=== PATIENT | male | born 1950 | race Caucasian/White ===

== ENCOUNTER 2017-11-03 16:14 | Emergency (ER) | payer OTHER ==
[2017-11-03] MEDS ORDERED: ASPIRIN 81 MG CHEWABLE TABLETS PO ONE (16:44)
--- NOTE | 2017-11-03 16:44 | PDOC ---
Rapid Medical Evaluation Time Seen by Provider: 11/03/17 16:40 Medical Evaluation: 11/03/17 16:41 I have performed a brief in-person evaluation of this patient. The patient presents with a chief complaint of: R pleuritic chest pain since last night, denies fever, chills, vomiting, diarrhea, hx of "URI, i see a pulmonary doctor" Pertinent physical exam findings: pain with inspiration, lungs ctab I have ordered the following: labs, ekg, cxr The patient will proceed to the ED for further evaluation. Discharge Disposition - Diagnosis Chest pain, pleuritic - Referrals - Patient Instructions - Post Discharge Activity
[2017-11-03 16:48] VITALS: BMI 38.0
[2017-11-03] MEDS ORDERED: ASPIRIN 81 MG CHEWABLE TABLETS ONE (16:56)
[2017-11-03 17:23] LABS: BASO % 0.5 % (0-2.0); EOS % 3.1 % (0-4.5); HEMATOCRIT 45.8 % (35.4-49); HEMOGLOBIN 15.5 GM/dL (11.7-16.9); MCH 31.4 pg (25.7-33.7); MCHC 33.8 g/dl (32.0-35.9); MEAN CELL VOLUME 93.1 fl (80-96); MEAN PLT VOLUME 9.4 fl (7.5-11.1); MONO % 9.5 % (3.8-10.2); NEUT % 67.9 % (42.8-82.8); PLATELET COUNT 250 K/MM3 (134-434); RBC 4.92 M/mm3 (4.00-5.60); RDW 13.4 % (11.9-15.9); WHITE BLOOD COUNT 9.3 K/mm3 (4.0-10.0)
--- NOTE | 2017-11-03 17:38 | PDOC ---
Attending Attestation - Resident Resident Name: Heber Snider - ED Attending Attestation I have performed the following: I have examined & evaluated the patient, The case was reviewed & discussed with the resident, I agree w/resident's findings & plan, Exceptions are as noted - HPI HPI: 11/06/17 22:41 Mr Reich is a 67 yo M who presents to the ER with a complaint of right sided chest pain Pt has a history of HTN, SVT, Tobacco abuse, COPD Pt worsens with movement or palpation No worsening of his cough or shortness of breath No fevers or chills No ill contacts No recent travel/immobilization/surgery - Physicial Exam PE: 11/03/17 18:59 GENERAL: The patient is in no acute distress, pt appears to be in pain, therefore is standing in the caban near his bed instead of sitting on the bed HEAD: Normal EYES: PERRLA, EOMI, sclera anicteric, conjunctiva clear. ENT: Ears normal, nares patent, oropharynx clear without exudates. Moist mucous membranes. NECK: Normal range of motion, supple LUNGS: (+) wheezes on examination HEART:Regular rate and rhythm, normal S1 and S2 without murmur, rub or gallop. ABDOMEN: Soft, nontender, normoactive bowel sounds. No guarding, no rebound. No masses palpable. EXTREMITIES: Normal range of motion, no edema. No clubbing or cyanosis. No erythema, or tenderness. NEUROLOGICAL: Cranial nerves II through XII grossly intact. Normal speech. Right lower extremity weakness MUSCULOSKELETAL: (+) right chest wall tenderness to palpation SKIN: Warm, Dry, normal turgor, no rashes or lesions noted. 11/03/17 19:00 - Medical Decision Making 11/03/17 19:00 67 yo M presenting to the ER due to right sided chest pain No shortness of breath and neck pain Pt actively wheezing on examination Will do Labs CT imaging Nebs D dimer sent Re assess Laboratory Tests 11/03/17 11/03/17 11/03/17 17:00 17:06 17:06 WBC 9.3 Hgb 15.5 Hct 45.8 Plt Count 250 Neutrophils % 67.9 Lymphocytes % 19.0 INR 1.10 Sodium 136 Potassium 4.1 Chloride 101 Carbon Dioxide 27 BUN 13 Creatinine 1.0 Random Glucose 86 Creatine Kinase 267 Creatine Kinase Index 1.4 CK-MB (CK-2) 3.753 H Troponin I < 0.02 D dimer elevated Will do CTA Pt signed out to the on coming physician CTA pending Clinical Impression: chest pain, initial presentation
[2017-11-03 17:47] LABS: INR 1.1 (0.82-1.09); PROTHROMBIN TIME (PATIENT) 12.4 SEC (9.98-11.88)
--- NOTE | 2017-11-03 18:00 | PDOC ---
History of Present Illness - General Chief Complaint: Pain Stated Complaint: PAIN, ACUTE Time Seen by Provider: 11/03/17 16:40 History Source: Patient Exam Limitations: No Limitations - History of Present Illness Initial Comments: 11/03/17 17:56 Patient is a 67M with history of HTN, SVT tobacco abuse and "the beginning of COPD" here today complaining of right sided chest pain that started this morning. The pain is worsened with movement, cough, inspiration and palpation. 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 He denies fever, chills, nausea, vomiting. Denies sick contacts. He states that he' s never had a blood clot before, denies leg swelling and denies recent travel/ immobilization. He endorses associated shortness of breath. He states that he's had SVT in the past and used to take verapimil, but does not now. PCP: Kang Carrillom: [place] Past History - Past Medical History Allergies/Adverse Reactions: Allergies Allergy/AdvReac Type Severity Reaction Status Date / Time metronidazole [From Flagyl] Allergy Mild Rash Verified 11/03/17 16:41 Home Medications: Ambulatory Orders Candesartan Cilexetil [Atacand (Nf) -] 8 mg PO DAILY 11/03/17 COPD: No - Surgical History Appendectomy: Yes - Suicide/Smoking/Psychosocial Hx Smoking History: Current every day smoker Have you smoked in the past 12 months: Yes Number of Cigarettes Smoked Daily: 8 Information on smoking cessation initiated: No Hx Alcohol Use: No Drug/Substance Use Hx: No Substance Use Type: None Review of Systems - Review of Systems Comments:: 11/03/17 18:00 GENERAL/CONSTITUTIONAL: No fever or chills. No weakness. HEAD, EYES, EARS, NOSE AND THROAT: No change in vision. No sore throat. CARDIOVASCULAR: Positive for chest pain and shortness of breath RESPIRATORY: Positive for cough. Negative for hemoptysis. GASTROINTESTINAL: No nausea, vomiting, diarrhea or constipation. GENITOURINARY: No dysuria, frequency, or change in urination. MUSCULOSKELETAL: No joint or muscle swelling or pain. No neck or back pain. SKIN: No rash NEUROLOGIC: No headache, vertigo, loss of consciousness, or change in strength/ sensation. ENDOCRINE: No increased thirst. No abnormal weight change HEMATOLOGIC/LYMPHATIC: No anemia, easy bleeding, or history of blood clots. ALLERGIC/IMMUNOLOGIC: No hives or skin allergy. *Physical Exam - Vital Signs Last Vital Signs Temp Pulse Resp BP Pulse Ox 97.8 F 71 20 158/78 97 11/03/17 16:42 11/03/17 16:42 11/03/17 16:42 11/03/17 16:42 11/03/17 16:42 - Physical Exam Comments: 11/03/17 18:04 GENERAL: Awake, alert, and fully oriented, in no acute distress HEAD: No signs of trauma, normocephalic, atraumatic EYES: PERRLA, EOMI, sclera anicteric, conjunctiva clear ENT: Auricles normal inspection, hearing grossly normal, nares patent, oropharynx clear without exudates. Moist mucosa NECK: Normal ROM, supple, +JVD LUNGS: No distress, speaks full sentences, scattered wheezes bilaterally HEART: Regular rate and rhythm, normal S1 and S2, no murmurs, rubs or gallops, peripheral pulses normal and equal bilaterally. CHEST: Tender to palpation along ribs in mid right chest ABDOMEN: Protuberant but soft, nontender. No guarding, no rebound. No masses EXTREMITIES: Normal inspection, Normal range of motion, 2+ edema bilaterally along tibia. No clubbing or cyanosis. NEUROLOGICAL: Cranial nerves II through XII grossly intact. Normal speech, normal gait, no focal sensorimotor deficits SKIN: Warm, Dry, normal turgor, no rashes or lesions noted. ED Treatment Course - LABORATORY CBC & Chemistry Diagram: 11/03/17 17:06 11/03/17 17:00 - ADDITIONAL ORDERS Additional order review: 11/03/17 17:06 RBC 4.92 MCV 93.1 MCHC 33.8 RDW 13.4 MPV 9.4 Neutrophils % 67.9 Lymphocytes % 19.0 Monocytes % 9.5 Eosinophils % 3.1 Basophils % 0.5 - Medications Given in the ED: ED Medications Discontinued Medications Generic Name Dose Route Start Last Admin Trade Name Freq PRN Reason Stop Dose Admin Aspirin 162 mg 11/03/17 16:44 11/03/17 16:59 Asa - PO 11/03/17 16:45 162 mg ONCE ONE Administration Medical Decision Making - Medical Decision Making 11/03/17 18:06 Patient is a 67M with history of HTN, SVT, possible COPD here today complaining of right sided chest pain. Patient appears to have heart failure. Patient is very tender along rib, concerning for rib injury, possibly secondary to mets from an undiagnosed CA. Patient last saw doctor in January 2017. Differential diagnosis also includes, but is not limited to: msk pain due to coughing, PE, ACS. Patient is low-risk wells, but cannot PERC out. Will workup with CBC, CMP, Trop, PT/INR, CXR, EKG, D-dimer. If D-dimer positive, will do CTA. If D-dimer is positive, will CTA. Will likely CT Chest if D-dimer is negative, will decide after basic workup completed. 11/03/17 18:17 D-dimer mildly elevated. Upon further history taken patient has had multiple suspicious for what sounds to be CXR and Chest CTs in the past. Will do CTA Chest to evaluate for possible PE, lung CA, pneuonia and other lung etiologies. 11/03/17 18:48 EKG shows normal sinus rhythm with sinus arrhythmia. Normal rate, normal axis. No st elevations/depressions. Normal SD, QTc, QRS intervals. No signifivant t- wave abnormalities. 11/03/17 19:06 Laboratory Tests 11/03/17 11/03/17 11/03/17 17:00 17:06 17:06 WBC 9.3 Hgb 15.5 Hct 45.8 Plt Count 250 D-Dimer 560 H Creatinine 1.0 Troponin I < 0.02 CBC normal. CMP shows normal kidney function. Trop negative. BNP pending. Signed out to Dr Bernal. CTA Chest and BNP pending. *DC/Admit/Observation/Transfer Diagnosis at time of Disposition: Chest pain, pleuritic - Discharge Dispostion Condition at time of disposition: Stable - Referrals Referrals: Dejan Kapadia MD [Primary Care Provider] - - Patient Instructions - Post Discharge Activity
[2017-11-03 18:44] LABS: ALBUMIN 4.4 g/dl (3.4-5.0); ANION GAP 8 (8-16); BLOOD UREA NITROGEN 13 mg/dL (7-18); CALCIUM 8.8 mg/dL (8.5-10.1); CHLORIDE 101 mmol/L (98-107); CO2 27 mmol/L (21-32); GLUCOSE,RANDOM 86 mg/dL (74-106); POTASSIUM 4.1 mmol/L (3.5-5.1); SODIUM 136 mmol/L (136-145)
[2017-11-03 18:50] LABS: ALK PHOS 88 U/L (45-117); BILIRUBIN,TOTAL 0.6 mg/dL (0.2-1.0); SGOT/AST 27 U/L (15-37); SGPT/ALT 55 U/L (12-78); TOT PROT 7.7 g/dl (6.4-8.2)
[2017-11-03] MEDS ORDERED: traMADol HCL 50 MG TABLET PO ONE (22:10)
[2017-11-03] MEDS ORDERED: AZITHROMYCIN 250 MG TABLET PO STA (22:10)
--- NOTE | 2017-11-03 22:14 | PDOC ---
*Physical Exam - Vital Signs Last Vital Signs Temp Pulse Resp BP Pulse Ox 97.8 F 71 20 158/78 97 11/03/17 16:42 11/03/17 16:42 11/03/17 16:42 11/03/17 16:42 11/03/17 16:42 ED Treatment Course - LABORATORY CBC & Chemistry Diagram: 11/03/17 17:06 11/03/17 17:00 - ADDITIONAL ORDERS Additional order review: Laboratory Results 11/03/17 11/03/17 11/03/17 17:34 17:06 17:06 PT with INR 12.40 H INR 1.10 D-Dimer 560 H Sodium Potassium Chloride Carbon Dioxide Anion Gap BUN Creatinine Creat Clearance w eGFR Random Glucose Calcium Magnesium Total Bilirubin AST ALT Alkaline Phosphatase Creatine Kinase Troponin I B-Natriuretic Peptide 38.35 Total Protein Albumin 11/03/17 17:00 PT with INR INR D-Dimer Sodium 136 Potassium 4.1 Chloride 101 Carbon Dioxide 27 Anion Gap 8 BUN 13 Creatinine 1.0 Creat Clearance w eGFR > 60 Random Glucose 86 Calcium 8.8 Magnesium 2.0 Total Bilirubin 0.6 AST 27 ALT 55 Alkaline Phosphatase 88 Creatine Kinase 267 Troponin I < 0.02 B-Natriuretic Peptide Total Protein 7.7 Albumin 4.4 11/03/17 17:06 RBC 4.92 MCV 93.1 MCHC 33.8 RDW 13.4 MPV 9.4 Neutrophils % 67.9 Lymphocytes % 19.0 Monocytes % 9.5 Eosinophils % 3.1 Basophils % 0.5 - Medications Given in the ED: ED Medications Discontinued Medications Generic Name Dose Route Start Last Admin Trade Name Juanq PRN Reason Stop Dose Admin Aspirin 162 mg 11/03/17 16:44 11/03/17 16:59 Asa - PO 11/03/17 16:45 162 mg ONCE ONE Administration *DC/Admit/Observation/Transfer Diagnosis at time of Disposition: Chest pain, pleuritic - Discharge Dispostion Disposition: HOME Condition at time of disposition: Stable Admit: No - Prescriptions Prescriptions: Azithromycin [Zithromax -] 250 mg PO UTDICT #6 tab Tramadol HCl [Ultram] 50 mg PO QID #20 tablet MDD 200 - Referrals Referrals: Dejan Kapadia MD [Primary Care Provider] - - Patient Instructions Printed Discharge Instructions: DI for Atypical Chest Pain Additional Instructions: Please follow up with Dr. Kapadia as soon as possible for re-evaluation. TAke medication as directed. Return if any problems - Post Discharge Activity
[2017-11-03] MEDS ORDERED: AZITHROMYCIN 250 MG TABLET ONE (22:15)
[2017-11-03] MEDS ORDERED: traMADol HCL 50 MG TABLET ONE (22:15)
[2017-11-03 22:23] VITALS: BP 145/73; PULSE 78; TEMP 98
--- NOTE | 2017-11-04 11:50 | EKG ---
Test Reason : Blood Pressure : / mmHG Vent. Rate : 069 BPM Atrial Rate : 069 BPM P-R Int : 154 ms QRS Dur : 090 ms QT Int : 418 ms P-R-T Axes : 050 015 040 degrees QTc Int : 447 ms POOR DATA QUALITY, INTERPRETATION MAY BE ADVERSELY AFFECTED NORMAL SINUS RHYTHM WITH SINUS ARRHYTHMIA NORMAL ECG WHEN COMPARED WITH ECG OF 03-JUN-2006 00:17, NO SIGNIFICANT CHANGE WAS FOUND Confirmed by DIVYA HANSEN, JULISSA ([id number]) on 11/04/2017 11:50:20 AM Referred By: Confirmed By:JULISSA STOKES MD
== END 2017-11-03 22:23 | disposition home or self-care (01) ==
LOC: JER 16:14
DX: R07.89 Other chest pain (principal); I10 Essential (primary) hypertension; I47.1 Supraventricular tachycardia; F17.210 Nicotine dependence, cigarettes, uncomplicated
CPT/HCPCS: 36415; 71046-TC-FY; 71275-TC; 80053; 82550; 82553; 83735; 83880; 84484; 85025; 85379; 85610; 93005; 93010; 99284-25

== ENCOUNTER 2018-12-03 13:11 | Inpatient (IN) | payer OTHER ==
--- NOTE | 2018-12-03 14:28 | PDOC ---
History of Present Illness - General Chief Complaint: Pain Stated Complaint: ABD PAIN/BLEEDING Time Seen by Provider: 12/03/18 13:52 History Source: Patient - History of Present Illness Initial Comments: 68 yo M h/o HTN, SVT, COPD p/w bleeding per rectum. Patient endorses, 30 mins after lunch, he had R lower quadrant pain, 6/10, comes and goes, non-radiating, sharp. Then he had 5 episodes of bright red blood with dark stool since lunch. He had 2 shots of vodka last night and bread and eggs for lunch. He has had chronic epigastric discomfort for which he takes colace suppository and PPI for GERD. EGD and colonoscopy on 11/18/18 found 2 gastric polyps, gastritis, diverticulosis and 3 angioplastic lesions which were cauterized. His PMD (Dr. Kapadia) instructed him to get an abd CT with oral contrast next Wednesday. He follows Dr. Daniel for GI. Denies fever, chills, dizziness, headache, blurry vision, urinary sx, n/v. 12/03/18 14:40 Will do GI bleed workup: CBC, T&S, coag, CMP, EKG 12/03/18 16:13 Patient will be admitted under Dr. Barker's service Past History - Past Medical History Allergies/Adverse Reactions: Allergies Allergy/AdvReac Type Severity Reaction Status Date / Time metronidazole [From Flagyl] Allergy Mild Rash Verified 12/03/18 13:25 Home Medications: Ambulatory Orders Candesartan Cilexetil [Atacand (Nf) -] 8 mg PO DAILY 11/03/17 Pantoprazole Sodium 40 mg PO DAILY 12/03/18 COPD: No - Surgical History Appendectomy: Yes - Suicide/Smoking/Psychosocial Hx Smoking History: Current some day smoker Have you smoked in the past 12 months: Yes Number of Cigarettes Smoked Daily: 8 Information on smoking cessation initiated: No Hx Alcohol Use: No Drug/Substance Use Hx: No Substance Use Type: None Review of Systems - Review of Systems Able to Perform ROS?: Yes Constitutional: Yes: Weight Stable. No: Chills, Fever, Malaise, Weakness Respiratory: No: Cough, Shortness of Breath, Wheezing Cardiac (ROS): No: Chest Pain, Edema, Palpitations, Syncope, Chest Tightness ABD/GI: Yes: Constipated, Rectal Bleeding, Abdominal cramping. No: Abdominal Distended, Nausea, Vomiting : No: Burning, Dysuria, Flank Pain, Incontinence, Pain Neurological: No: Headache, Dizziness *Physical Exam - Vital Signs Last Vital Signs Temp Pulse Resp BP Pulse Ox 98.2 F 104 H 16 169/90 98 12/03/18 13:15 12/03/18 13:15 12/03/18 13:15 12/03/18 13:15 12/03/18 13:15 - Physical Exam General Appearance: No: Apparent Distress Respiratory/Chest: positive: Normal Breath Sounds Cardiovascular: positive: Regular Rhythm, Regular Rate, S1, S2. negative: Edema , JVD, Murmur Gastrointestinal/Abdominal: positive: Normal Bowel Sounds, Tender (suprapubic), Soft. 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 NML intact, Fully Oriented, Alert Moderate Sedation - Procedure Monitoring Vital Signs: Procedure Monitoring Vital Signs Temperature 98.2 F 12/03/18 13:15 Pulse Rate 104 H 12/03/18 13:15 Respiratory Rate 16 12/03/18 13:15 Blood Pressure 169/90 12/03/18 13:15 O2 Sat by Pulse Oximetry (%) 98 12/03/18 13:15 ED Treatment Course - LABORATORY CBC & Chemistry Diagram: 12/03/18 14:44 12/03/18 14:44 *DC/Admit/Observation/Transfer Diagnosis at time of Disposition: Lower GI bleed - Discharge Dispostion Decision to Admit order: Yes - Referrals Referrals: Dejan Kapadia MD [Primary Care Provider] - - Patient Instructions - Post Discharge Activity
[2018-12-03] MEDS ORDERED: SODIUM CHLORIDE 500 ML IV STA (14:35)
--- NOTE | 2018-12-03 15:33 | PDOC ---
Attending Attestation - Resident Resident Name: Manuel Mora - ED Attending Attestation I have performed the following: I have examined & evaluated the patient, The case was reviewed & discussed with the resident, I agree w/resident's findings & plan - HPI HPI: 12/03/18 15:26 68-year-old male hypertension, COPD presents with bright red blood per rectum since 11:30 AM. Patient reports right lower quadrant cramping followed by dark/ red grossly bloody bowel movements including blood clots, had his sixth episode in the last 4 hours while in the emergency department. The cramping is temporary and relieved with a bowel movement, not persistent. Patient had endoscopy and colonoscopy on 11/18/18, noted to have gastritis on endoscopy and diverticulosis as well as AVMs in the cecum on colonoscopy. No history of GI bleed, not on blood thinners. - Physicial Exam PE: 12/03/18 15:28 Vitals as noted, heart rate 90 Well-appearing, conversant, no acute distress Heart is regular, not tachycardic while lying in stretcher Abdomen soft/nondistended, mild right lower quadrant discomfort without guarding or rebound. Appendectomy scars. - Medical Decision Making 12/03/18 15:32 68y/o M s/p colonoscopy with AVM cautery, also with diverticulosis p/w LGIB over 2h, benign abdominal exam and HD stable at this time. labs, trend CBC ekg, cxr not on blood thinners, transfuse as needed admit, GI consult 12/03/18 16:30 first hgb 14.7, chem wnl proceed with admission Heart Score/ECG Review #1 ECG reviewed & interpreted by me at: 14:33 General ECG Interpretation: Sinus Rhythm, Normal Rate (80), Normal Intervals ( qtc 445), No acute ischemic changes
[2018-12-03 15:44] LABS: BASO % 0.5 % (0-2.0); EOS % 1.7 % (0-4.5); HEMATOCRIT 42.3 % (35.4-49); HEMOGLOBIN 14.7 GM/dL (11.7-16.9); INR 1.09 (0.83-1.09); LYMPH % 15.1 % (8-40); MCH 32.7 pg (25.7-33.7); MCHC 34.7 g/dl (32.0-35.9); MEAN CELL VOLUME 94.3 fl (80-96); MONO % 9.9 % (3.8-10.2); NEUT % 72.8 % (42.8-82.8); PLATELET COUNT 216 K/MM3 (134-434); PROTHROMBIN TIME (PATIENT) 12.9 SEC (9.7-13.0); RBC 4.49 M/mm3 (4.00-5.60); RDW 13.5 % (11.9-15.9); WHITE BLOOD COUNT 7.2 K/mm3 (4.0-10.0)
[2018-12-03 15:47] LABS: ACTIVATED PTT 35.5 SECONDS (25.2-36.5)
--- NOTE | 2018-12-03 16:15 | HP ---
Admitting History and Physical - Admission History of Present Illness: 68 yo M h/o HTN, SVT, COPD p/w bleeding per rectum. Patient endorses, 30 mins after lunch, he had R lower quadrant pain, 6/10, comes and goes, non-radiating, sharp. Then he had 5 episodes of bright red blood with dark stool since lunch. He had 2 shots of vodka last night and bread and eggs for lunch. He has had chronic epigastric discomfort for which he takes colace suppository and PPI for GERD. EGD and colonoscopy on 11/18/18 found 2 gastric polyps, gastritis, diverticulosis and 3 angioplastic lesions which were cauterized. His PMD (Dr. Kapadia) instructed him to get an abd CT with oral contrast next Wednesday. He follows Dr. Daniel for GI. Denies fever, chills, dizziness, headache, blurry vision, urinary sx, n/v. Patient c/o intermittent chiquita-umbilical pain - Past Medical History Cardiovascular: Yes: HTN. No: CAD, CHF Pulmonary: Yes: COPD Gastrointestinal: Yes: Diverticulosis, GERD, Other (avm) Renal/: No: Renal Failure - Smoking History Smoking history: Current some day smoker Have you smoked in the past 12 months: Yes Aproximately how many cigarettes per day: 8 - Alcohol/Substance Use Hx Alcohol Use: No Home Medications - Allergies Allergies/Adverse Reactions: Allergies Allergy/AdvReac Type Severity Reaction Status Date / Time metronidazole [From Flagyl] Allergy Mild Rash Verified 12/03/18 13:25 - Home Medications Home Medications: Ambulatory Orders Candesartan Cilexetil [Atacand (Nf) -] 8 mg PO DAILY 11/03/17 Pantoprazole Sodium 40 mg PO DAILY 12/03/18 Review of Systems - Review of Systems Cardiovascular: denies: Chest Pain, Palpitations Respiratory: denies: Orthopnea, SOB Gastrointestinal: reports: Abdominal Pain, Constipation, Rectal Bleeding. denies: Dysphagia, Melena Genitourinary: reports: No Symptoms Neurological: reports: No Symptoms Physical Examination Vital Signs: Vital Signs Temperature 98.2 F 12/03/18 13:15 Pulse Rate 104 H 12/03/18 13:15 Respiratory Rate 16 12/03/18 13:15 Blood Pressure 169/90 12/03/18 13:15 O2 Sat by Pulse Oximetry (%) 98 12/03/18 13:15 Cardiovascular: Yes: Regular Rate and Rhythm Respiratory: Yes: Regular, CTA Bilaterally Gastrointestinal: Yes: Normal Bowel Sounds, Soft, Tenderness (mild) Edema: No Labs: CBC, BMP 12/03/18 14:44 Problem List - Problems (1) GI bleed Assessment/Plan: --maybe diverticular vs avm bleed follow hgb ppi gi consult Code(s): K92.2 - GASTROINTESTINAL HEMORRHAGE, UNSPECIFIED (2) Diverticula of colon Assessment/Plan: as above Code(s): K57.30 - DVRTCLOS OF LG INT W/O PERFORATION OR ABSCESS W/O BLEEDING (3) AVM (arteriovenous malformation) of colon Assessment/Plan: as above cta Code(s): K55.20 - ANGIODYSPLASIA OF COLON WITHOUT HEMORRHAGE
[2018-12-03 16:22] LABS: ALBUMIN 3.8 g/dl (3.4-5.0); ANION GAP 6 MMOL/L (8-16); BILIRUBIN,TOTAL 0.4 mg/dL (0.2-1); BLOOD UREA NITROGEN 16 mg/dL (7-18); CHLORIDE 104 mmol/L (98-107); CO2 29 mmol/L (21-32); CREATININE 0.9 mg/dL (0.55-1.3); GLUCOSE,RANDOM 101 mg/dL (74-106); MAGNESIUM 2.3 mg/dL (1.8-2.4); PHOSPHOROUS 2.9 mg/dL (2.5-4.9); POTASSIUM 4.5 mmol/L (3.5-5.1); SGOT/AST 31 U/L (15-37); SGPT/ALT 48 U/L (13-61); SODIUM 138 mmol/L (136-145)
[2018-12-03 16:23] LABS: ALK PHOS 84 U/L (45-117)
[2018-12-03] MEDS: D5-1/2NS+20 MEQ KCL - 20 MEQ/1,000 ML INFUS.BAG IV SCH (16:45)
[2018-12-03 19:42] LABS: HEMATOCRIT 40.5 % (35.4-49); HEMOGLOBIN 14.2 GM/dL (11.7-16.9); MCH 32.9 pg (25.7-33.7); MEAN PLT VOLUME 9.7 fl (7.5-11.1); PLATELET COUNT 244 K/MM3 (134-434); RBC 4.31 M/mm3 (4.00-5.60); RDW 13.5 % (11.9-15.9); WHITE BLOOD COUNT 10.4 K/mm3 (4.0-10.0)
[2018-12-03] MEDS: ALBUTEROL SO4 2.5/IPRATROPIUM 0.5 INH SOL 3 ML VIAL.NEB. NEB SCH (20:53)
[2018-12-04 05:59] VITALS: BMI 36.3
[2018-12-04] MEDS: D5-1/2NS+20 MEQ KCL - 20 MEQ/1,000 ML INFUS.BAG IV SCH ×3 (06:35→18:41)
[2018-12-04] MEDS: ALBUTEROL SO4 2.5/IPRATROPIUM 0.5 INH SOL 3 ML VIAL.NEB. NEB SCH ×4 (07:59→20:47)
[2018-12-04 08:35] LABS: BASO % 0.6 % (0-2.0); EOS % 2.9 % (0-4.5); HEMATOCRIT 32.1 % (35.4-49); HEMOGLOBIN 11.4 GM/dL (11.7-16.9); LYMPH % 23.3 % (8-40); MCH 32.9 pg (25.7-33.7); MCHC 35.5 g/dl (32.0-35.9); MEAN CELL VOLUME 92.7 fl (80-96); MEAN PLT VOLUME 9.7 fl (7.5-11.1); MONO % 8.8 % (3.8-10.2); NEUT % 64.4 % (42.8-82.8); PLATELET COUNT 188 K/MM3 (134-434); RBC 3.46 M/mm3 (4.00-5.60); RDW 13.3 % (11.9-15.9); WHITE BLOOD COUNT 6.3 K/mm3 (4.0-10.0)
[2018-12-04 09:03] LABS: ALBUMIN 3.2 g/dl (3.4-5.0); ALK PHOS 61 U/L (45-117); ANION GAP 6 MMOL/L (8-16); BILIRUBIN,TOTAL 0.5 mg/dL (0.2-1); BLOOD UREA NITROGEN 16 mg/dL (7-18); CHLORIDE 108 mmol/L (98-107); CO2 26 mmol/L (21-32); CREATININE 0.9 mg/dL (0.55-1.3); GLUCOSE,RANDOM 105 mg/dL (74-106); POTASSIUM 4.1 mmol/L (3.5-5.1); SGOT/AST 20 U/L (15-37); SGPT/ALT 34 U/L (13-61); SODIUM 140 mmol/L (136-145); TOT PROT 5.8 g/dl (6.4-8.2)
--- NOTE | 2018-12-04 09:28 | PN ---
Progress Note, Physician Chief Complaint: GI bleed History of Present Illness: NAD labs reviewed, some drop in H/H No BM today Denies N/V/abd pain, denies fever last BM yesterday-bloody diarrhea Recent Colonoscopy + EGD with Dr Saul Daniel on 11/18/18 GI consult pending - Current Medication List Current Medications: Active Medications Albuterol/Ipratropium (Duoneb -) 1 amp NEB RQID [facility] Last Admin: 12/04/18 07:59 Dose: Not Given Potassium Chloride/Dextrose/Sod Cl (D5-1/2ns+20 Meq Kcl -) 20 meq in 1,000 mls @ 83 mls/hr IV ASDIR [facility] Last Admin: 12/04/18 06:35 Dose: 83 mls/hr - Objective Vital Signs: Vital Signs Temperature 98.1 F 12/04/18 05:42 Pulse Rate 73 12/04/18 05:42 Respiratory Rate 18 12/04/18 05:42 Blood Pressure 115/60 12/04/18 05:42 O2 Sat by Pulse Oximetry (%) 97 12/03/18 22:00 Constitutional: Yes: Well Nourished, No Distress, Calm, Obese Cardiovascular: Yes: Regular Rate and Rhythm Respiratory: Yes: Regular Gastrointestinal: Yes: Normal Bowel Sounds, Soft, Abdomen, Obese, Tenderness ( LLQ) Musculoskeletal: Yes: WNL Extremities: Yes: WNL Edema: No Peripheral Pulses WNL: Yes Neurological: Yes: Alert, Oriented Psychiatric: Yes: Alert, Oriented Labs: CBC, BMP 12/04/18 07:30 12/04/18 07:30 INR, PTT INR 1.09 (0.83-1.09) 12/03/18 14:44 Problem List - Problems (1) Diverticula of colon Code(s): K57.30 - DVRTCLOS OF LG INT W/O PERFORATION OR ABSCESS W/O BLEEDING (2) GI bleed Assessment/Plan: -PPI -GI Consult -serial CBC's -diet as per GI -Dr Daniel notified -IVF Code(s): K92.2 - GASTROINTESTINAL HEMORRHAGE, UNSPECIFIED Assessment/Plan See problem list Self ambulatory
--- NOTE | 2018-12-04 11:11 | EKG ---
Test Reason : Blood Pressure : / mmHG Vent. Rate : 080 BPM Atrial Rate : 080 BPM P-R Int : 170 ms QRS Dur : 090 ms QT Int : 386 ms P-R-T Axes : 035 001 025 degrees QTc Int : 445 ms NORMAL SINUS RHYTHM WITH SINUS ARRHYTHMIA NORMAL ECG WHEN COMPARED WITH ECG OF 03-NOV-2017 18:34, NO SIGNIFICANT CHANGE WAS FOUND Confirmed by MD VINOD, NELLY ([id number]) on 12/04/2018 11:10:47 AM Referred By: Confirmed By:NELLY BROCK MD
--- NOTE | 2018-12-04 12:32 | CON.GI ---
Consult Consult Specialty:: GI Referred by:: Ben Olson NP Reason for Consultation:: Rectal Bleeding - History of Present Illness Chief Complaint: Rectal bleeding History of Present Illness: 68M with multiple episodes of painless dark red rectal bleeding with clots, starting yesterday morning. he had 4 episodes at home and describes having had 5 episodes in the ER. last episode was last night. Had recent procedures with Dr. Saul Daniel. 11/18/18 had EGD that revealed antral gastritis. Biopsies were performed and two 1cm polyps were removed via cold snare polypectomy. 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 They were described as non bleeding however cauterization was performed using cautery. Sigmoid diverticulosis was noted as well. Initial Hgb was 14.7. Hgb this AM is 11.4. He was tachycardic on admission that has since normalized. BP has remained stable. CTA failed to reveal overt bleeding source. He currently denies any focal GI complaints. There is no family history of colorectal cancer. - History Source History Provided By: Patient, Medical Record Limitations to Obtaining History: No Limitations - Past Medical History Cardio/Vascular: Yes: HTN. No: CAD, CHF Pulmonary: Yes: COPD Gastrointestinal: Yes: Diverticulosis, GERD, Other (Colonic vascular ectasias) Renal/: No: Renal Failure - Past Surgical History Past Surgical History: Yes: Appendectomy - Alcohol/Substance Use Hx Alcohol Use: Yes (SOCIALLY) History of Substance Use: reports: None - Smoking History Smoking history: Current some day smoker Have you smoked in the past 12 months: Yes Aproximately how many cigarettes per day: 8 - Social History Usual Living Arrangement: Alone ADL: Independent Place of : [facility] History of Recent Travel: No Home Medications - Allergies Allergies/Adverse Reactions: Allergies Allergy/AdvReac Type Severity Reaction Status Date / Time metronidazole [From Flagyl] Allergy Mild Rash Verified 12/03/18 13:25 - Home Medications Home Medications: Ambulatory Orders Candesartan Cilexetil [Atacand (Nf) -] 8 mg PO DAILY 11/03/17 Pantoprazole Sodium 40 mg PO DAILY 12/03/18 Family Disease History - Family Disease History Family Disease History: Other: Father (: did not know med history), Mother ( : 57: Pancreatic Ca), Brother (2, 1 from [facility]), Sister (2, healthy ), Daughter (1, healthy) Other Family History: No family history of colorectal cancer or other GI malignancy Physical Exam-GI Vital Signs: Vital Signs Temperature 98.1 F 12/04/18 05:42 Pulse Rate 73 12/04/18 05:42 Respiratory Rate 18 12/04/18 05:42 Blood Pressure 115/60 12/04/18 05:42 O2 Sat by Pulse Oximetry (%) 97 12/03/18 22:00 Labs: CBC, BMP 12/04/18 07:30 12/04/18 07:30 INR, PTT INR 1.09 (0.83-1.09) 12/03/18 14:44
--- NOTE | 2018-12-04 12:45 | CON.GI ---
Consult Consult Specialty:: GI Referred by:: Ben Olson NP Reason for Consultation:: Rectal bleeding - History of Present Illness Chief Complaint: Rectal bleeding History of Present Illness: 68M with multiple episodes of painless dark red rectal bleeding with clots, starting yesterday morning. he had 4 episodes at home and describes having had 5 episodes in the ER. last episode was last night. Had recent procedures with Dr. Saul Daniel. 11/18/18 had EGD that revealed antral gastritis. Biopsies were performed and two 1cm polyps were removed via cold snare polypectomy. 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 They were described as non bleeding however cauterization was performed using cautery. Sigmoid diverticulosis was noted as well. Initial Hgb was 14.7. Hgb this AM is 11.4. He was tachycardic on admission that has since normalized. BP has remained stable. CTA failed to reveal overt bleeding source. He currently denies any focal GI complaints. There is no family history of colorectal cancer. - Past Medical History Cardio/Vascular: Yes: HTN. No: CAD, CHF Pulmonary: Yes: COPD Gastrointestinal: Yes: Diverticulosis, GERD, Other (Colonic vascular ectasias) Renal/: No: Renal Failure - Past Surgical History Past Surgical History: Yes: Appendectomy - Alcohol/Substance Use Hx Alcohol Use: Yes (2-3 voda/soda per weekend) History of Substance Use: reports: None - Smoking History Smoking history: Current some day smoker Have you smoked in the past 12 months: Yes Aproximately how many cigarettes per day: 8 - Social History Usual Living Arrangement: Alone ADL: Independent History of Recent Travel: No Home Medications - Allergies Allergies/Adverse Reactions: Allergies Allergy/AdvReac Type Severity Reaction Status Date / Time metronidazole [From Flagyl] Allergy Mild Rash Verified 12/03/18 13:25 - Home Medications Home Medications: Ambulatory Orders Candesartan Cilexetil [Atacand (Nf) -] 8 mg PO DAILY 11/03/17 Pantoprazole Sodium 40 mg PO DAILY 12/03/18 Family Disease History - Family Disease History Family Disease History: Other: Father (: did not know med history), Mother ( : 57: Pancreatic Ca), Brother (2, 1 from [place]), Sister (2, healthy ), Daughter (1, healthy) Other Family History: No family history of colorectal cancer or other GI malignancy Review of Systems - Review of Systems Constitutional: denies: Chills Cardiovascular: denies: Chest Pain, Shortness of Breath Respiratory: denies: SOB Gastrointestinal: reports: Rectal Bleeding. denies: Abdominal Pain, Vomiting Physical Exam-GI Vital Signs: Vital Signs Temperature 98.1 F 12/04/18 05:42 Pulse Rate 73 12/04/18 05:42 Respiratory Rate 18 12/04/18 05:42 Blood Pressure 115/60 12/04/18 05:42 O2 Sat by Pulse Oximetry (%) 97 12/03/18 22:00 Constitutional: Yes: Calm Eyes: No: Sclera Icterus Cardiovascular: Yes: Regular Rate and Rhythm Respiratory: Yes: CTA Bilaterally Gastrointestinal Inspection: Yes: Scars (faint RLQ scar). No: Distention ...Auscultate: Yes: Normoactive Bowel Sounds ...Palpate: Yes: Soft. No: Hepatomegaly, Mass, Splenomegaly, Tenderness Labs: CBC, BMP 12/04/18 07:30 12/04/18 07:30 INR, PTT INR 1.09 (0.83-1.09) 12/03/18 14:44 Imaging - Results Cat Scan: Report Reviewed, Image Reviewed Problem List - Problems (1) GI bleed Assessment/Plan: suspect diverticular bleedin or possible bleeding from one of the previously described treated AVM sites in the colon. Polyps were removed in the stomacch and doubt delayed upper GI bleed, however to exclude atypical presentation of upper GI bleedin proposed EGD along with colonoscopy for further evaluation. Discussed potential risks of the procedures like but not limited to bleeding perforation requiring syrgery to repair, infection, sedation medication effects , all of which could be potentially life threatening. He has agreed to the procedures. For now: Ordered repeat CBC for now. 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 Saul Daniel' service aware of Mr. Reich's hospitalization Code(s): K92.2 - GASTROINTESTINAL HEMORRHAGE, UNSPECIFIED
[2018-12-04 14:16] LABS: HEMATOCRIT 33.7 % (35.4-49); HEMOGLOBIN 11.7 GM/dL (11.7-16.9); MCH 32.6 pg (25.7-33.7); MCHC 34.7 g/dl (32.0-35.9); MEAN CELL VOLUME 94.1 fl (80-96); PLATELET COUNT 195 K/MM3 (134-434); RBC 3.58 M/mm3 (4.00-5.60); RDW 13.4 % (11.9-15.9); WHITE BLOOD COUNT 5.8 K/mm3 (4.0-10.0)
[2018-12-04] MEDS ORDERED: BISACODYL 5 MG TABLET.DR (FP) PO ONE (15:00)
[2018-12-04] MEDS ORDERED: PEG 3350/NA SULF BICARB CL/KCL 4000 ML SOLN.RECON PO ONE (16:00)
[2018-12-04] MEDS: PANTOPRAZOLE SODIUM 40 MG VIAL IVPUSH SCH (18:41)
[2018-12-05] MEDS ORDERED: DEXTROSE 5%-0.45% SALINE 1,000 ML IV SCH (00:01)
[2018-12-05 07:07] LABS: SERUM IRON SATURATION 29 % (15-55); TOTAL IRON BINDING CAPACITY 255 ug/dL (250-450); UIBC 180 ug/dL (111-343)
[2018-12-05 07:38] LABS: BASO % 0.7 % (0-2.0); EOS % 4.4 % (0-4.5); HEMATOCRIT 30.8 % (35.4-49); LYMPH % 25.1 % (8-40); MCH 33.2 pg (25.7-33.7); MCHC 35.6 g/dl (32.0-35.9); MEAN CELL VOLUME 93.3 fl (80-96); MEAN PLT VOLUME 9.5 fl (7.5-11.1); MONO % 9.6 % (3.8-10.2); NEUT % 60.2 % (42.8-82.8); PLATELET COUNT 176 K/MM3 (134-434); RDW 13.3 % (11.9-15.9); WHITE BLOOD COUNT 5.1 K/mm3 (4.0-10.0)
[2018-12-05] MEDS: ALBUTEROL SO4 2.5/IPRATROPIUM 0.5 INH SOL 3 ML VIAL.NEB. NEB SCH ×4 (07:56→21:54)
[2018-12-05 08:09] LABS: ALBUMIN 3.3 g/dl (3.4-5.0); ALK PHOS 62 U/L (45-117); ANION GAP 5 MMOL/L (8-16); BILIRUBIN,TOTAL 0.5 mg/dL (0.2-1); BLOOD UREA NITROGEN 8 mg/dL (7-18); CALCIUM 8.3 mg/dL (8.5-10.1); CHLORIDE 107 mmol/L (98-107); CO2 28 mmol/L (21-32); CREATININE 0.8 mg/dL (0.55-1.3); GLUCOSE,RANDOM 100 mg/dL (74-106); POTASSIUM 3.7 mmol/L (3.5-5.1); SGOT/AST 28 U/L (15-37); SGPT/ALT 42 U/L (13-61); SODIUM 140 mmol/L (136-145)
[2018-12-05] MEDS: PANTOPRAZOLE SODIUM 40 MG VIAL IVPUSH SCH (11:11)
[2018-12-05] MEDS ORDERED: GLUCAGON 1 MG KIT ONE (12:36)
[2018-12-05] MEDS ORDERED: GLUCAGON 1 MG KIT IVPUSH ONE (12:38)
--- NOTE | 2018-12-05 13:26 | PN ---
Progress Note (short form) - Note Progress Note: Brief procedure reports Colonoscopy - internal hemorrhoids, left sided diverticula, 4mm polyp in cecum removed with jumbo cold forceps, diminutive rectosigmoid polyp removed with jumbo cold forceps. No blood in colon. Repeat in 5 years. Endoscopy - small hiatal hernia, 4 3-6mm gastric cardia and body polyps, not removed, two antral healing ulcerations, possibly from previous polypectomies; 3mm duodenal bulb polyp, removed with jumbo cold forceps. Recommend Resume diet Trend H/H Await biopsy results Should have follow up with Dr. Almita Daniel in the office to decide what, if anything , needs to be done about the remaining gastric polyps
--- NOTE | 2018-12-05 17:48 | PN ---
Progress Note, Physician Chief Complaint: GI bleed History of Present Illness: Previous notes and events reviewed awake and alert NAD s/p EGD and colonoscopy today denies rectal bleeding, rectal pain, bloody diarrhea - Current Medication List Current Medications: Active Medications Albuterol/Ipratropium (Duoneb -) 1 amp NEB RQID [facility] Last Admin: 12/05/18 11:13 Dose: Not Given Potassium Chloride/Dextrose/Sod Cl (D5-1/2ns+20 Meq Kcl -) 20 meq in 1,000 mls @ 83 mls/hr IV ASDIR [facility] Last Admin: 12/04/18 18:41 Dose: 83 mls/hr Pantoprazole Sodium (Protonix Iv) 40 mg IVPUSH DAILY [facility] Last Admin: 12/05/18 11:11 Dose: 40 mg - Objective Vital Signs: Vital Signs Temperature 97.6 F 12/05/18 14:15 Pulse Rate 72 12/05/18 14:15 Respiratory Rate 18 12/05/18 14:15 Blood Pressure 138/66 12/05/18 14:15 O2 Sat by Pulse Oximetry (%) 98 12/05/18 14:15 Constitutional: Yes: Well Nourished, No Distress, Calm Eyes: Yes: Conjunctiva Clear HENT: Yes: Atraumatic Cardiovascular: Yes: Regular Rate and Rhythm Respiratory: Yes: Regular, CTA Bilaterally Gastrointestinal: Yes: Normal Bowel Sounds, Soft, Other (non tender) Musculoskeletal: Yes: WNL Extremities: Yes: WNL Edema: No Neurological: Yes: Alert, Oriented Psychiatric: Yes: Alert, Oriented Labs: CBC, BMP 12/05/18 05:30 12/05/18 05:30 INR, PTT INR 1.09 (0.83-1.09) 12/03/18 14:44 - ....Imaging Cat Scan: Report Reviewed Problem List - Problems (1) GI bleed Assessment/Plan: -GI on board -continue with pantoprazole -s/p EGD and colonoscopy -current Hg 11.0 -monitor Hg, transfuse for Hg <8.0 -colonoscopy show internal hemorrhoids, L sided diverticula, 4mm polyp, diminutive rectosigmoid polyp, no blood viewed in colon--awaiting pathology -EGD show small hiatal hernia, 4 3-6mm gastric cardia and body polyp, 2 antral healing ulcerations, 3mm duodenal bulb polyp--awaiting pathology result Code(s): K92.2 - GASTROINTESTINAL HEMORRHAGE, UNSPECIFIED Assessment/Plan see problem list dvt ppx
[2018-12-06 04:53] VITALS: TEMP 98
[2018-12-06 07:19] LABS: HEMATOCRIT 29.3 % (35.4-49); HEMOGLOBIN 10.3 GM/dL (11.7-16.9); MCH 32.9 pg (25.7-33.7); MEAN CELL VOLUME 94.1 fl (80-96); MEAN PLT VOLUME 9.9 fl (7.5-11.1); PLATELET COUNT 167 K/MM3 (134-434); RBC 3.11 M/mm3 (4.00-5.60); RDW 13.4 % (11.9-15.9); WHITE BLOOD COUNT 5.8 K/mm3 (4.0-10.0)
[2018-12-06 07:31] LABS: ALBUMIN 3.2 g/dl (3.4-5.0); ALK PHOS 69 U/L (45-117); ANION GAP 6 MMOL/L (8-16); BILIRUBIN,TOTAL 0.5 mg/dL (0.2-1); BLOOD UREA NITROGEN 9 mg/dL (7-18); CALCIUM 8.1 mg/dL (8.5-10.1); CHLORIDE 109 mmol/L (98-107); CO2 27 mmol/L (21-32); CREATININE 0.9 mg/dL (0.55-1.3); GLUCOSE,RANDOM 85 mg/dL (74-106); POTASSIUM 3.8 mmol/L (3.5-5.1); SGOT/AST 25 U/L (15-37); SGPT/ALT 38 U/L (13-61); SODIUM 141 mmol/L (136-145); TOT PROT 5.8 g/dl (6.4-8.2)
[2018-12-06] MEDS: ALBUTEROL SO4 2.5/IPRATROPIUM 0.5 INH SOL 3 ML VIAL.NEB. NEB SCH (08:51)
[2018-12-06] MEDS: PANTOPRAZOLE SODIUM 40 MG VIAL IVPUSH SCH (09:41)
--- NOTE | 2018-12-06 11:06 | DS ---
Physical Examination Vital Signs: Vital Signs Temperature 98 F 12/06/18 04:53 Pulse Rate 71 12/06/18 04:53 Respiratory Rate 18 12/06/18 04:53 Blood Pressure 127/70 12/06/18 04:53 O2 Sat by Pulse Oximetry (%) 98 12/05/18 14:15 Findings/Remarks: Patient is a 68 y/o male with past medical history of HTN, SVT, COPD who presented to ER with bleeding per rectum. Patient says 30 min after lunch he had intermitternt, nonradiaiting sharp RLQ pain 6/10 accompanied with 5 episodes of BRBPR with dark colored stools. He has complain of epigastric pain with hx of GERD and currently on PPI. Previously had EGD and colonoscopy on 11/18 which show 2 gastric polyps, gastritis, diverticulosis, and 3 angioplastic lesions which were cauterized. His PMD instructed him to get an abdominal CT scan with PO contrast next week. Patient is followed by Dr. Daniel for GI. In ER noted to be Stool OB positive with stable Hg 14.7. Abdomen and Pelvic CTA shows cholelithiasis with slightly thickened gallbladder, diffuse fatty infiltration of liver, diverticulosis coli with no evidence of acute diverticulitis, no CT evidence of active GI bleed. Patient was evaluated by GI and repeat EGD and colonoscopy performed on 12/05/18 which shows internal hemorrhoids, left sided diverticula, 4mm polyp in cecum removed with jumbo cold forceps, diminuitive rectosigmoid polyp removed with jumbo cold forceps, no blood in colon, and repeat colon in 5 years. EGD shows small hiatal hernia, 4 3-6mm gastric cardia and body polyp, not removed, two antral healing ulcers, 3mm duodenal bulb polyp removed with jumbo cold forceps. Patient denies any rectal bleeding, rectal pain s/p colonoscopy. Hg is stable at 10.3. Constitutional: Yes: Well Nourished, No Distress, Calm Eyes: Yes: Conjunctiva Clear HENT: Yes: Atraumatic Cardiovascular: Yes: Regular Rate and Rhythm Respiratory: Yes: Regular, CTA Bilaterally Gastrointestinal: Yes: Normal Bowel Sounds, Soft, Abdomen, Obese, Other (non tender) Musculoskeletal: Yes: WNL Extremities: Yes: WNL Edema: No Neurological: Yes: Alert, Oriented Psychiatric: Yes: Alert, Oriented Labs: CBC, BMP 03/19/19 06:05 12/06/18 06:05 Discharge Summary Reason For Visit: LOWER GASTROINTESTINAL HEMORRHAGE Current Active Problems AVM (arteriovenous malformation) of colon (Acute) Diverticula of colon (Acute) GI bleed (Acute) Procedures: Principal: EGD, Colonoscopy Hospital Course: see progress notes Laboratory Tests 12/03/18 12/03/18 12/03/18 14:31 14:31 14:44 WBC RBC Hgb Hct MCV MCH MCHC RDW Plt Count MPV Absolute Neuts (auto) Neutrophils % Lymphocytes % Monocytes % Eosinophils % Basophils % Nucleated RBC % PT with INR INR PTT (Actin FS) Sodium Potassium Chloride Carbon Dioxide Anion Gap BUN Creatinine Creat Clearance w eGFR Random Glucose Calcium Phosphorus Magnesium Iron 75 TIBC 255 Iron Saturation 29 Ferritin 271.1 Total Bilirubin AST ALT Alkaline Phosphatase Total Protein Albumin Stool Occult Blood Blood Type O POSITIVE Antibody Screen Negative 12/03/18 12/03/18 12/03/18 14:44 14:44 14:44 WBC 7.2 RBC 4.49 Hgb 14.7 Hct 42.3 MCV 94.3 MCH 32.7 MCHC 34.7 RDW 13.5 Plt Count 216 MPV 10.0 Absolute Neuts (auto) 5.2 Neutrophils % 72.8 Lymphocytes % 15.1 D Monocytes % 9.9 Eosinophils % 1.7 Basophils % 0.5 Nucleated RBC % 0 PT with INR 12.90 INR 1.09 PTT (Actin FS) 35.5 Sodium 138 Potassium 4.5 Chloride 104 Carbon Dioxide 29 Anion Gap 6 L BUN 16 Creatinine 0.9 Creat Clearance w eGFR 84.43 Random Glucose 101 Calcium 9.0 Phosphorus 2.9 Magnesium 2.3 Iron TIBC Iron Saturation Ferritin Total Bilirubin 0.4 AST 31 ALT 48 Alkaline Phosphatase 84 Total Protein 7.0 Albumin 3.8 Stool Occult Blood Blood Type Antibody Screen 12/03/18 12/03/18 12/04/18 19:26 19:26 07:30 WBC 10.4 H 6.3 RBC 4.31 3.46 L Hgb 14.2 11.4 L Hct 40.5 32.1 L D MCV 94.0 92.7 MCH 32.9 32.9 MCHC 35.0 35.5 RDW 13.5 13.3 Plt Count 244 188 D MPV 9.7 9.7 Absolute Neuts (auto) 4.1 Neutrophils % 64.4 Lymphocytes % 23.3 D Monocytes % 8.8 Eosinophils % 2.9 Basophils % 0.6 Nucleated RBC % 0 PT with INR INR PTT (Actin FS) Sodium Potassium Chloride Carbon Dioxide Anion Gap BUN Creatinine Creat Clearance w eGFR Random Glucose Calcium Phosphorus Magnesium Iron TIBC Iron Saturation Ferritin Total Bilirubin AST ALT Alkaline Phosphatase Total Protein Albumin Stool Occult Blood Blood Type O POSITIVE Antibody Screen 12/04/18 12/04/18 12/04/18 07:30 13:35 16:10 WBC 5.8 RBC 3.58 L Hgb 11.7 Hct 33.7 L MCV 94.1 MCH 32.6 MCHC 34.7 RDW 13.4 Plt Count 195 MPV 10.0 Absolute Neuts (auto) Neutrophils % Lymphocytes % Monocytes % Eosinophils % Basophils % Nucleated RBC % PT with INR INR PTT (Actin FS) Sodium 140 Potassium 4.1 Chloride 108 H Carbon Dioxide 26 Anion Gap 6 L BUN 16 Creatinine 0.9 Creat Clearance w eGFR 84.43 Random Glucose 105 Calcium 8.0 L Phosphorus Magnesium Iron TIBC Iron Saturation Ferritin Total Bilirubin 0.5 AST 20 ALT 34 Alkaline Phosphatase 61 Total Protein 5.8 L Albumin 3.2 L Stool Occult Blood Positive Blood Type Antibody Screen 12/05/18 12/05/18 12/06/18 05:30 05:30 06:05 WBC 5.1 5.8 RBC 3.30 L 3.11 L Hgb 11.0 L 10.3 L Hct 30.8 L 29.3 L MCV 93.3 94.1 MCH 33.2 32.9 MCHC 35.6 35.0 RDW 13.3 13.4 Plt Count 176 167 MPV 9.5 9.9 Absolute Neuts (auto) 3.1 Neutrophils % 60.2 Lymphocytes % 25.1 Monocytes % 9.6 Eosinophils % 4.4 Basophils % 0.7 Nucleated RBC % 0 PT with INR INR PTT (Actin FS) Sodium 140 Potassium 3.7 Chloride 107 Carbon Dioxide 28 Anion Gap 5 L BUN 8 Creatinine 0.8 Creat Clearance w eGFR 96.72 Random Glucose 100 Calcium 8.3 L Phosphorus Magnesium Iron TIBC Iron Saturation Ferritin Total Bilirubin 0.5 AST 28 ALT 42 Alkaline Phosphatase 62 Total Protein 6.0 L Albumin 3.3 L Stool Occult Blood Blood Type Antibody Screen 12/06/18 06:05 WBC RBC Hgb Hct MCV MCH MCHC RDW Plt Count MPV Absolute Neuts (auto) Neutrophils % Lymphocytes % Monocytes % Eosinophils % Basophils % Nucleated RBC % PT with INR INR PTT (Actin FS) Sodium 141 Potassium 3.8 Chloride 109 H Carbon Dioxide 27 Anion Gap 6 L BUN 9 Creatinine 0.9 Creat Clearance w eGFR 84.43 Random Glucose 85 Calcium 8.1 L Phosphorus Magnesium Iron TIBC Iron Saturation Ferritin Total Bilirubin 0.5 AST 25 ALT 38 Alkaline Phosphatase 69 Total Protein 5.8 L Albumin 3.2 L Stool Occult Blood Blood Type Antibody Screen Active Medications Generic Name Dose Route Start Last Admin Trade Name Freq PRN Reason Stop Dose Admin Albuterol/Ipratropium 1 amp 12/03/18 20:00 12/06/18 08:51 Duoneb - NEB Not Given RQID NITIN Pantoprazole Sodium 40 mg 12/04/18 18:15 12/06/18 09:41 Protonix Iv IVPUSH 40 mg DAILY NITIN Administration Condition: Stable - Instructions Diet, Activity, Other Instructions: follow up with PCP in 1 week follow up with GI Dr Daniel post colonoscopy continue with med regimen as scheduled return to ER if rectal bleeding, severe abdominal pain, chest pain, or difficulty breathing Referrals: Saul Daniel MD [Staff Physician] - Dejan Kapadia MD [Primary Care Provider] - Disposition: HOME - Home Medications Comprehensive Discharge Medication List: Ambulatory Orders Candesartan Cilexetil [Atacand (Nf) -] 8 mg PO DAILY 11/03/17 Pantoprazole Sodium 40 mg PO DAILY 12/03/18
[2018-12-06 12:01] VITALS: BP 132/78; PULSE 68
--- NOTE | 2018-12-07 16:22 | PATH ---
Surgical Pathology Report Patient Name: SANTA CLAY [facility]. Rec. #: [id number] /Age/Gender: 1950 (Age: 68) / M Account: [id number] Location: [address] [place] [address] Taken: 12/05/2018 Received: 12/06/2018 Reported: 12/07/2018 Physicians: Rubi Barker M.D. Specimen(s) Received A: CECUM POLYP B: RECTOSIGMOID POLYP C: BX DUODENAL BULB POLYP Clinical History Rectal bleeding, diverticulosis, colon polyps, hemorrhoids, gastric polyps, duodenum polyps, hiatal hernia Final Diagnosis A. CECUM POLYP, POLYPECTOMY: TUBULAR ADENOMA. B. RECTOSIGMOID POLYP, POLYPECTOMY: HYPERPLASTIC POLYP. C. DUODENUM BULB POLYP, BIOPSY: POLYPOID DUODENUM MUCOSA SHOWING ACUTE AND CHRONIC INFLAMMATION, FOCAL DILATED GLANDS, AND VASCULAR CONGESTION. Electronically Signed Lino Crowley M.D. Gross Description A. Received in formalin, labeled "cecum polyp" is a kay, irregular portions of soft tissue measuring 0.4 cm. in greatest dimension. The specimens are submitted in toto in one cassette. B. Received in formalin, labeled "rectosigmoid polyp" is a kay, irregular portion of soft tissue measuring 0.3 cm. in greatest dimension. The specimens are submitted in toto in one cassette. C. Received in formalin, labeled "duodenal bulb polyp" are 2 kay, irregular portions of soft tissue measuring 0.2 cm. in greatest dimension. The specimens are submitted in toto in one cassette. __ KELY/12/06/2018 bruna/12/06/2018
== END 2018-12-06 12:12 | disposition home or self-care (01) | DRG 920 ==
LOC: JERFT 13:11 → JER 13:11 → JERBED 16:12 → J5S 18:47
PROVIDERS: ADMIT Family Medicine; ATTEND Family Medicine
PROC: 0DBH8ZX Excision of Cecum, Via Natural or Artificial Opening Endoscopic, Diagnostic (ICD-10-PCS; 2018-12-05)
PROC: 0DBN8ZX Excision of Sigmoid Colon, Via Natural or Artificial Opening Endoscopic, Diagnostic (ICD-10-PCS; 2018-12-05)
PROC: 0DB98ZX Excision of Duodenum, Via Natural or Artificial Opening Endoscopic, Diagnostic (ICD-10-PCS; principal; 2018-12-05 10:30)
DX: K91.840 Postprocedural hemorrhage of a digestive system organ or structure following a digestive system procedure (principal); K92.2 Gastrointestinal hemorrhage, unspecified; K55.20 Angiodysplasia of colon without hemorrhage; I10 Essential (primary) hypertension; J44.9 Chronic obstructive pulmonary disease, unspecified; E66.9 Obesity, unspecified; Z68.36 Body mass index [BMI] 36.0-36.9, adult; K44.9 Diaphragmatic hernia without obstruction or gangrene; K31.7 Polyp of stomach and duodenum; K63.5 Polyp of colon; K57.30 Diverticulosis of large intestine without perforation or abscess without bleeding; K64.8 Other hemorrhoids; Y83.8 Other surgical procedures as the cause of abnormal reaction of the patient, or of later complication, without mention of misadventure at the time of the procedure
CPT/HCPCS: 36415; 74174-TC; 80053; 82272; 82728; 83540; 83550; 83735; 84100; 85025; 85027; 85610; 85730; 86850; 86900; 86901; 88305-TC; 93005; 93010; 94640; 99284-25